=== PATIENT | male | born 1950 | race Caucasian/White ===

== ENCOUNTER 2018-03-01 07:38 | Inpatient (IN) | payer BC ==
[2018-03-01] MEDS ORDERED: IODIXANOL LOCM 100 ML BTL (08:15)
[2018-03-01] MEDS ORDERED: VERAPAMIL 5 MG INJ (08:16)
[2018-03-01] MEDS ORDERED: NITROGLYCERIN (IC) 100 MCG/ML INJ (08:16)
[2018-03-01] MEDS ORDERED: HEPARIN 1000 UNITS/ML 10 ML INJ (08:16)
[2018-03-01] MEDS ORDERED: LIDOCAINE 1% (MDV) 10 ML INJ (08:16)
[2018-03-01] MEDS: SOD CHLORIDE 0.45% 1,000 ML IV (08:25)
[2018-03-01] MEDS ORDERED: DIAZEPAM 5 MG TAB PO (08:30)
[2018-03-01] MEDS ORDERED: DIPHENHYDRAMINE 50 MG CAP PO (08:30)
[2018-03-01] MEDS ORDERED: FAMOTIDINE 20 MG TAB PO (08:30)
[2018-03-01 08:32] LABS: ADD MAN DIFF? NO
[2018-03-01 08:38] LABS: WHITE BLOOD COUNT 8.3 10^3/ul (4.8-10.8)
[2018-03-01 08:38] LABS: BASOPHIL # 0.1 10^3/ul (0.0-0.1); BASOPHILS % 0.8 % (0.0-2.0); EOSINOPHILS # 0.6 10^3/ul (0.0-0.5); EOSINOPHILS % 7.1 % (0.0-7.0); HEMOGLOBIN 13.8 g/dl (14.0-18.0); LYMPHOCYTES # 2.2 10^3/ul (0.8-2.9); LYMPHOCYTES % 26.1 % (15.0-51.0); MEAN CORPUSCULAR HEMOGLOBIN 25.8 pg (29.0-33.0); MEAN CORPUSCULAR HGB CONC 32.9 g/dl (32.0-37.0); MEAN CORPUSCULAR VOLUME 78.7 fl (82.0-101.0); MEAN PLATELET VOLUME 9.4 fl (7.4-10.4); MONOCYTE # 0.7 10^3/ul (0.3-0.9); MONOCYTES % 8.6 % (0.0-11.0); NEUTROPHIL # 4.7 10^3/ul (1.6-7.5); NEUTROPHILS % 56.9 % (39.0-77.0); PLATELET COUNT 215 10^3/UL (140-415); RED BLOOD COUNT 5.34 10^6/ul (4.70-6.10); RED CELL DISTRIBUTION WIDTH 13.4 % (11.5-14.5)
[2018-03-01 08:44] LABS: ALANINE AMINOTRANSFERASE 35 IU/L (13-69); ALBUMIN 4.3 g/dl (3.3-4.9); ALBUMIN/GLOBULIN RATIO 1.59; ALKALINE PHOSPHATASE 61 IU/L (42-121); ANION GAP 13 (8-16); ASPARTATE AMINO TRANSFERASE 28 IU/L (15-46); BILIRUBIN,INDIRECT 1.3 mg/dl (0-1.1); BILIRUBIN,TOTAL 1.3 mg/dl (0.2-1.3); BLOOD UREA NITROGEN 25 mg/dl (7-20); CARBON DIOXIDE 26 mmol/L (21-31); CHLORIDE 106 mmol/L (97-110); CHOL/HDL RATIO 2.8 RATIO; CHOLESTEROL 118 mg/dl (100-200); CREATININE 1.28 mg/dl (0.61-1.24); GLUCOSE 103 mg/dl (70-220); HDL CHOLESTEROL 41 mg/dl (30-78); LDL CHOLESTEROL,CALCULATED 53 mg/dl; POTASSIUM 3.8 mmol/L (3.5-5.1); SODIUM 141 mmol/L (135-144); TRIGLYCERIDES 118 mg/dl (0-149)
[2018-03-01 08:48] LABS: INR 0.93; PARTIAL THROMBOPLASTIN TIME 26.4 Sec (25.0-35.0); PROTIME 12.5 Sec (11.9-14.9)
[2018-03-01] MEDS ORDERED: MIDAZOLAM 1 MG/ML 2 ML INJ (08:59)
[2018-03-01] MEDS ORDERED: FENTAnyl 50 MCG/ML VIAL (09:00)
[2018-03-01] MEDS ORDERED: AL HYDROX/MG HYDROX/SIMETH 30 ML CUP PO (10:00)
[2018-03-01] MEDS ORDERED: morphine 2 MG INJ IV (10:00)
[2018-03-01] MEDS: SOD CHLORIDE 0.9% 1,000 ML IV ×2 (10:23→14:00)
[2018-03-01] MEDS: FINASTERIDE 5 MG TAB PO (14:45)
[2018-03-01] MEDS: ASPIRIN (EC) 81 MG TAB PO (14:45)
[2018-03-01 14:49] LABS: ADD UMIC NO; UR ASCORBIC ACID NEGATIVE (NEGATIVE); UR BILIRUBIN (Dip) NEGATIVE (NEGATIVE); UR BLOOD (Dip) NEGATIVE (NEGATIVE); UR CLARITY CLEAR (CLEAR); UR COLOR YELLOW (YELLOW); UR GLUCOSE (Dip) NEGATIVE (NEGATIVE); UR KETONES (Dip) NEGATIVE (NEGATIVE); UR LEUKOCYTE ESTERASE (Dip) NEGATIVE Leu/ul (NEGATIVE); UR NITRITE (Dip) NEGATIVE (NEGATIVE); UR SPECIFIC GRAVITY (Dip) 1.031 (1.003-1.030); UR TOTAL PROTEIN (Dip) NEGATIVE (NEGATIVE); UR UROBILINOGEN (Dip) NEGATIVE (NEGATIVE)
[2018-03-01] MEDS: ATORVASTATIN 40 MG TAB PO (22:56)
[2018-03-01] MEDS: ACETYLCYSTEINE 600 MG CAP PO (22:57)
[2018-03-02] MEDS: PANTOPRAZOLE (EC) 40 MG TAB PO (05:20)
[2018-03-02 06:36] LABS: ADD MAN DIFF? NO
[2018-03-02 06:42] LABS: BASOPHIL # 0.1 10^3/ul (0.0-0.1); BASOPHILS % 0.8 % (0.0-2.0); EOSINOPHILS # 0.6 10^3/ul (0.0-0.5); EOSINOPHILS % 6.8 % (0.0-7.0); HEMATOCRIT 42.7 % (42.0-52.0); LYMPHOCYTES # 2.3 10^3/ul (0.8-2.9); LYMPHOCYTES % 26.1 % (15.0-51.0); MEAN CORPUSCULAR HEMOGLOBIN 26.3 pg (29.0-33.0); MEAN CORPUSCULAR HGB CONC 32.8 g/dl (32.0-37.0); MEAN CORPUSCULAR VOLUME 80.3 fl (82.0-101.0); MEAN PLATELET VOLUME 9.3 fl (7.4-10.4); MONOCYTE # 0.7 10^3/ul (0.3-0.9); NEUTROPHIL # 5.2 10^3/ul (1.6-7.5); NEUTROPHILS % 57.9 % (39.0-77.0); PLATELET COUNT 215 10^3/UL (140-415); RED BLOOD COUNT 5.32 10^6/ul (4.70-6.10); RED CELL DISTRIBUTION WIDTH 13.1 % (11.5-14.5)
[2018-03-02] MEDS: SOD CHLORIDE 0.9% 1,000 ML IV ×2 (06:49→16:21)
[2018-03-02 07:02] LABS: ALANINE AMINOTRANSFERASE 31 IU/L (13-69); ALBUMIN 3.9 g/dl (3.3-4.9); ALBUMIN/GLOBULIN RATIO 1.44; ALKALINE PHOSPHATASE 56 IU/L (42-121); ANION GAP 14 (8-16); ASPARTATE AMINO TRANSFERASE 24 IU/L (15-46); BILIRUBIN,INDIRECT 1.7 mg/dl (0-1.1); BILIRUBIN,TOTAL 1.7 mg/dl (0.2-1.3); BLOOD UREA NITROGEN 21 mg/dl (7-20); CALCIUM 8.8 mg/dl (8.4-10.2); CARBON DIOXIDE 25 mmol/L (21-31); CHLORIDE 103 mmol/L (97-110); CREATININE 1.18 mg/dl (0.61-1.24); GLUCOSE 87 mg/dl (70-220); POTASSIUM 3.9 mmol/L (3.5-5.1); SODIUM 138 mmol/L (135-144); TOTAL PROTEIN 6.6 g/dl (6.1-8.1)
[2018-03-02] MEDS: ASPIRIN (EC) 81 MG TAB PO (08:28)
[2018-03-02] MEDS: ACETYLCYSTEINE 600 MG CAP PO ×2 (08:28→22:04)
[2018-03-02] MEDS: ISOSORBIDE MONONITRATE(SR)60 MG TAB PO (08:28)
[2018-03-02] MEDS: AMLODIPINE 10 MG TAB PO (08:28)
[2018-03-02] MEDS: FINASTERIDE 5 MG TAB PO (08:28)
[2018-03-02] MEDS ORDERED: METOPROLOL 25 MG TAB PO (09:00)
[2018-03-02] MEDS ORDERED: HYDROCHLOROTHIAZIDE 25 MG TAB PO (09:00)
[2018-03-02] MEDS: ATORVASTATIN 40 MG TAB PO (22:04)
[2018-03-03] MEDS: SOD CHLORIDE 0.9% 1,000 ML IV ×2 (06:00→21:46)
[2018-03-03] MEDS: PANTOPRAZOLE (EC) 40 MG TAB PO (06:00)
[2018-03-03 07:10] LABS: ADD MAN DIFF? NO
[2018-03-03 07:18] LABS: BASOPHIL # 0.1 10^3/ul (0.0-0.1); BASOPHILS % 0.9 % (0.0-2.0); EOSINOPHILS # 0.7 10^3/ul (0.0-0.5); EOSINOPHILS % 8.1 % (0.0-7.0); HEMATOCRIT 39.3 % (42.0-52.0); HEMOGLOBIN 12.9 g/dl (14.0-18.0); LYMPHOCYTES % 24.5 % (15.0-51.0); MEAN CORPUSCULAR HEMOGLOBIN 26.5 pg (29.0-33.0); MEAN CORPUSCULAR HGB CONC 32.8 g/dl (32.0-37.0); MEAN CORPUSCULAR VOLUME 80.7 fl (82.0-101.0); MEAN PLATELET VOLUME 9.5 fl (7.4-10.4); MONOCYTE # 0.7 10^3/ul (0.3-0.9); MONOCYTES % 8.5 % (0.0-11.0); NEUTROPHIL # 4.7 10^3/ul (1.6-7.5); NEUTROPHILS % 57.3 % (39.0-77.0); PLATELET COUNT 196 10^3/UL (140-415); RED BLOOD COUNT 4.87 10^6/ul (4.70-6.10); RED CELL DISTRIBUTION WIDTH 13.2 % (11.5-14.5)
[2018-03-03 07:18] LABS: WHITE BLOOD COUNT 8.2 10^3/ul (4.8-10.8)
[2018-03-03 08:05] LABS: ANION GAP 11 (8-16); BLOOD UREA NITROGEN 20 mg/dl (7-20); CALCIUM 8.5 mg/dl (8.4-10.2); CARBON DIOXIDE 25 mmol/L (21-31); CHLORIDE 106 mmol/L (97-110); CREATININE 1.19 mg/dl (0.61-1.24); GLUCOSE 93 mg/dl (70-220); POTASSIUM 4.3 mmol/L (3.5-5.1); SODIUM 138 mmol/L (135-144)
[2018-03-03] MEDS: ACETYLCYSTEINE 600 MG CAP PO (08:28)
[2018-03-03] MEDS: ASPIRIN (EC) 81 MG TAB PO (08:28)
[2018-03-03] MEDS: FINASTERIDE 5 MG TAB PO (08:28)
[2018-03-03] MEDS: AMLODIPINE 10 MG TAB PO (08:29)
[2018-03-03] MEDS: ISOSORBIDE MONONITRATE(SR)60 MG TAB PO (08:29)
[2018-03-03] MEDS: ATORVASTATIN 40 MG TAB PO (21:45)
[2018-03-04] MEDS: PANTOPRAZOLE (EC) 40 MG TAB PO (06:00)
[2018-03-04] MEDS: CEFAZOLIN 2 GM/50 ML (PMX) 50 ML IVPB (06:00)
[2018-03-04] MEDS: HEPARIN 1000 UNITS/ML 10 ML INJ (06:53)
[2018-03-04] MEDS: PAPAVERINE 60 MG INJ (06:53)
[2018-03-04] MEDS: VANCOMYCIN 1 GM INJ (06:53)
[2018-03-04] MEDS ORDERED: SODIUM CL BACTERIOSTATIC 30 ML INJ (06:54)
[2018-03-04] MEDS ORDERED: PROPOFOL 1000 MG INJ (07:00)
[2018-03-04] MEDS: ASPIRIN 600 MG SUPP PR (07:30)
[2018-03-04] MEDS: PHENYLephrine 20MG IN 250 ML 250 ML IV (07:30)
[2018-03-04] MEDS: NORepinephrine 8MG/250 ML (PMX 250 ML IV (07:30)
[2018-03-04] MEDS: EPINEPHrine 4 MG in DEXTROSE 5% 246 ML IV (07:30)
[2018-03-04] MEDS: HEPARIN (10000 UNITS/ML) 10,000 UNIT, MILRINONE LACTATE 10 MG in SOD CHLORIDE 0.9% 1,00... SC (07:30)
[2018-03-04] MEDS ORDERED: MIDAZOLAM 5 ML ×2 (07:33)
[2018-03-04] MEDS ORDERED: ALBUMIN HUMAN 25% 300 ML (07:46)
[2018-03-04] MEDS ORDERED: AMINOCAPROIC ACID 5 GM INJ ×2 (07:47→08:40)
[2018-03-04] MEDS ORDERED: CA CHLORIDE 10% 10 ML SYRINGE (07:47)
[2018-03-04] MEDS ORDERED: POTASSIUM CHLORIDE 40 MEQ INJ (07:48)
[2018-03-04] MEDS ORDERED: HEPARIN 1000 UNITS/ML 10 ML INJ ×2 (07:48→08:40)
[2018-03-04] MEDS ORDERED: PHENYLephrine 10 MG INJ (07:49)
[2018-03-04] MEDS ORDERED: LIDOCAINE 100 MG SYRINGE (07:49)
[2018-03-04] MEDS ORDERED: MAGNESIUM SULFATE (MG) 50% 10 ML INJ (07:49)
[2018-03-04] MEDS ORDERED: MANNITOL 20% 250 ML IV (07:50)
[2018-03-04] MEDS ORDERED: PHENYLephrine (100 MCG/ML) 5ML SYG (07:50)
[2018-03-04] MEDS ORDERED: CEFAZOLIN 1 GM INJ (08:33)
[2018-03-04] MEDS ORDERED: ALBUMIN HUMAN 25% 100 ML (08:40)
[2018-03-04] MEDS ORDERED: ALBUMIN HUMAN 5% 500 ML (08:40)
[2018-03-04] MEDS: SOD CHLORIDE 0.9% 1,000 ML IV ×2 (08:40→21:25)
[2018-03-04] MEDS ORDERED: PROTAMINE 250 MG INJ ×2 (08:41→10:38)
[2018-03-04] MEDS ORDERED: NITROGLYCERIN (08:51)
[2018-03-04] MEDS ORDERED: DEXTROSE (08:51)
[2018-03-04] MEDS ORDERED: morphine 10 MG INJ ×2 (08:53→11:13)
[2018-03-04] MEDS: AMLODIPINE 10 MG TAB PO (09:00)
[2018-03-04] MEDS: FINASTERIDE 5 MG TAB PO (09:00)
[2018-03-04] MEDS: DESMOPRESSIN IV (09:00)
[2018-03-04] MEDS: ISOSORBIDE MONONITRATE(SR)60 MG TAB PO (09:00)
[2018-03-04] MEDS: SOD CHLORIDE 0.9% IV (09:00)
[2018-03-04 09:40] LABS: IMMEDIATE SPIN CROSSMATCH 1 2
[2018-03-04] MEDS ORDERED: NEOMYC/POLYMYX/BACIT 30 GM OINT (11:14)
[2018-03-04] MEDS ORDERED: MAGNESIUM SULFATE 1 GM/D5W 100 ML IVPB (12:00)
[2018-03-04] MEDS ORDERED: DOPamine-D5W 1.6 MG/ML 250 ML IV (12:00)
[2018-03-04] MEDS: INSULIN HUMAN REGULAR 100 UNIT in SOD CHLORIDE 0.9% 99 ML IVPB (12:00)
[2018-03-04] MEDS ORDERED: ONDANSETRON 4 MG INJ IV (12:00)
[2018-03-04] MEDS ORDERED: DEXTROSE 50% 50 ML SYRINGE IV ×2 (12:00)
[2018-03-04] MEDS: NITROGLYCERIN 50 MG/D5W (PMX) 250 ML IV (12:00)
[2018-03-04] MEDS ORDERED: ACETAMINOPHEN 650MG/20.3ML CUP NGT (12:00)
[2018-03-04] MEDS ORDERED: HYDROmorphONE 0.5 MG/0.5 ML SYG IV ×2 (12:00)
[2018-03-04] MEDS: MILRINONE LACTATE 2 MG in SOD CHLORIDE 0.9% 50 ML IV (12:00)
[2018-03-04] MEDS ORDERED: HYDROmorphONE 1 MG/ML SYG IV (12:00)
[2018-03-04] MEDS: ACCU-CHEK XX ×12 (12:00→23:43)
[2018-03-04 12:28] LABS: ADD MAN DIFF? NO
[2018-03-04 12:34] LABS: AADO2 Arterial 457.8 mmHg (7.0-24.0); Arterial Base Excess -2.3 mmol/L (-3.0-3); Arterial Blood Gas Oxygen Sat 92.2 mmHG (95.0-98.0); Arterial COHb 0.3 % (0.0-3.0); Arterial Fraction of Oxyhgb 91.6 % (93.0-99.0); Arterial HCO3 23.1 mmol/L (22.0-26.0); Arterial MetHb 0.4 % (0.0-1.5); Arterial Total Hemglobin 11.1 g/dl (12.0-18.0); Arterial pCO2 42.6 mmhg (35-45); MODE VENT - AC; Site A-Line
[2018-03-04 12:38] LABS: MODE VENT - AC; MetHgb Mixed Venous 0.3 %; Mixed Venous COHb 0.3 %; Mixed Venous Fraction OxyHgb 74.9 %; Mixed Venous Oxygen Sat 75.4 mmHG (65.0-75.0); Mixed Venous Total Hemglobin 10.8 g/dl; Sample Type BLMV; Site OTHER
[2018-03-04 12:54] LABS: ANION GAP 15 (8-16); BLOOD UREA NITROGEN 18 mg/dl (7-20); CALCIUM 9.4 mg/dl (8.4-10.2); CARBON DIOXIDE 23 mmol/L (21-31); CHLORIDE 107 mmol/L (97-110); CREATININE 1.21 mg/dl (0.61-1.24); GLUCOSE 125 mg/dl (70-220); MAGNESIUM 2.5 mg/dl (1.7-2.5); PARTIAL THROMBOPLASTIN TIME 34.3 Sec (25.0-35.0); POTASSIUM 3.7 mmol/L (3.5-5.1); PROTIME 15.4 Sec (11.9-14.9); PT RATIO 1.2; SODIUM 141 mmol/L (135-144)
[2018-03-04 13:04] LABS: WHITE BLOOD COUNT 17.1 10^3/ul (4.8-10.8)
[2018-03-04 13:04] LABS: BASOPHIL # 0.1 10^3/ul (0.0-0.1); BASOPHILS % 0.3 % (0.0-2.0); EOSINOPHILS # 0.1 10^3/ul (0.0-0.5); EOSINOPHILS % 0.8 % (0.0-7.0); HEMATOCRIT 30.2 % (42.0-52.0); HEMOGLOBIN 9.9 g/dl (14.0-18.0); LYMPHOCYTES # 1.8 10^3/ul (0.8-2.9); LYMPHOCYTES % 10.4 % (15.0-51.0); MEAN CORPUSCULAR HEMOGLOBIN 26.4 pg (29.0-33.0); MEAN CORPUSCULAR HGB CONC 32.8 g/dl (32.0-37.0); MEAN CORPUSCULAR VOLUME 80.5 fl (82.0-101.0); MEAN PLATELET VOLUME 9.5 fl (7.4-10.4); MONOCYTE # 1.3 10^3/ul (0.3-0.9); MONOCYTES % 7.8 % (0.0-11.0); NEUTROPHIL # 13.7 10^3/ul (1.6-7.5); NEUTROPHILS % 80.1 % (39.0-77.0); PLATELET COUNT 195 10^3/UL (140-415); RED BLOOD COUNT 3.75 10^6/ul (4.70-6.10); RED CELL DISTRIBUTION WIDTH 13.1 % (11.5-14.5)
[2018-03-04] MEDS: POTASSIUM CHLORIDE 40 MEQ, CALCIUM CHLORIDE 10% 1 GM in DEXTROSE 5%-0.225% NACL 1,000 ML IV (14:22)
[2018-03-04] MEDS: POTASSIUM CHLORIDE 50 ML IVPB ×3 (14:42→16:58)
[2018-03-04] MEDS: CEFAZOLIN 1 GM/50 ML (PMX) 50 ML IVPB ×2 (14:52→21:59)
[2018-03-04] MEDS: SOD CHLORIDE 0.9% 500 ML IV (16:00)
[2018-03-04 17:19] LABS: AADO2 Arterial 430.5 mmHg (7.0-24.0); Arterial Base Excess -6.3 mmol/L (-3.0-3); Arterial Blood Gas Oxygen Sat 98.4 mmHG (95.0-98.0); Arterial COHb 0.2 % (0.0-3.0); Arterial Fraction of Oxyhgb 97.8 % (93.0-99.0); Arterial HCO3 19.2 mmol/L (22.0-26.0); Arterial MetHb 0.4 % (0.0-1.5); Arterial Total Hemglobin 10.4 g/dl (12.0-18.0); Arterial pCO2 37.7 mmhg (35-45); MODE VENT - AC; Site A-Line
[2018-03-04 17:30] LABS: HEMOGLOBIN A1C 5.7 % (0-5.9)
[2018-03-04 19:30] LABS: ADD MAN DIFF? NO
[2018-03-04 19:33] LABS: WHITE BLOOD COUNT 17.6 10^3/ul (4.8-10.8)
[2018-03-04 19:33] LABS: ABNORMAL IP MESSAGE 1; BASOPHILS % 0.2 % (0.0-2.0); EOSINOPHILS # 0.2 10^3/ul (0.0-0.5); EOSINOPHILS % 1.1 % (0.0-7.0); HEMATOCRIT 29.3 % (42.0-52.0); HEMOGLOBIN 9.6 g/dl (14.0-18.0); LYMPHOCYTES # 0.6 10^3/ul (0.8-2.9); LYMPHOCYTES % 3.6 % (15.0-51.0); MEAN CORPUSCULAR HEMOGLOBIN 26.8 pg (29.0-33.0); MEAN CORPUSCULAR HGB CONC 32.8 g/dl (32.0-37.0); MEAN CORPUSCULAR VOLUME 81.8 fl (82.0-101.0); MEAN PLATELET VOLUME 9.4 fl (7.4-10.4); MONOCYTE # 1.3 10^3/ul (0.3-0.9); MONOCYTES % 7.6 % (0.0-11.0); NEUTROPHIL # 15.3 10^3/ul (1.6-7.5); PLATELET COUNT 257 10^3/UL (140-415); POSITIVE DIFF @See below; RED BLOOD COUNT 3.58 10^6/ul (4.70-6.10); RED CELL DISTRIBUTION WIDTH 13.2 % (11.5-14.5)
[2018-03-04 19:50] LABS: ALANINE AMINOTRANSFERASE 24 IU/L (13-69); ALBUMIN 4.3 g/dl (3.3-4.9); ALBUMIN/GLOBULIN RATIO 2.04; ALKALINE PHOSPHATASE 28 IU/L (42-121); ANION GAP 16 (8-16); ASPARTATE AMINO TRANSFERASE 30 IU/L (15-46); BILIRUBIN,INDIRECT 0.8 mg/dl (0-1.1); BILIRUBIN,TOTAL 0.8 mg/dl (0.2-1.3); BLOOD UREA NITROGEN 22 mg/dl (7-20); CALCIUM 9.3 mg/dl (8.4-10.2); CARBON DIOXIDE 22 mmol/L (21-31); CHLORIDE 108 mmol/L (97-110); CREATININE 1.44 mg/dl (0.61-1.24); GLUCOSE 137 mg/dl (70-220); MAGNESIUM 2.4 mg/dl (1.7-2.5); PHOSPHORUS 2.3 mg/dl (2.5-4.9); POTASSIUM 4.5 mmol/L (3.5-5.1); SODIUM 141 mmol/L (135-144); TOTAL PROTEIN 6.4 g/dl (6.1-8.1)
[2018-03-04] MEDS: FAMOTIDINE 20 MG INJ IV (20:02)
[2018-03-04] MEDS: ACETAMINOPHEN 325 MG TAB PO (20:02)
[2018-03-04] MEDS: ATORVASTATIN 40 MG TAB PO (20:02)
[2018-03-04 20:55] LABS: AADO2 Arterial 150.1 mmHg (7.0-24.0); Arterial Base Excess -4.4 mmol/L (-3.0-3); Arterial Blood Gas Oxygen Sat 96.4 mmHG (95.0-98.0); Arterial COHb 0.2 % (0.0-3.0); Arterial Fraction of Oxyhgb 95.8 % (93.0-99.0); Arterial HCO3 20.4 mmol/L (22.0-26.0); Arterial MetHb 0.4 % (0.0-1.5); Arterial Total Hemglobin 10.6 g/dl (12.0-18.0); Arterial pCO2 36.4 mmhg (35-45); Blood Gas PS 10; MODE VENT - CPAP; Site A-Line
[2018-03-04] MEDS ORDERED: FAMOTIDINE 20 MG TAB PO (21:00)
[2018-03-04] MEDS: ONDANSETRON 4 MG INJ IV (21:12)
[2018-03-04] MEDS: OXYCODONE/ACETAMINOPHEN (5/325) TAB PO (23:42)
[2018-03-05] MEDS: ACCU-CHEK XX ×11 (00:30→10:08)
[2018-03-05] MEDS: INSULIN HUMAN REGULAR 100 UNIT in SOD CHLORIDE 0.9% 99 ML IV (04:10)
[2018-03-05] MEDS: OXYCODONE/ACETAMINOPHEN (5/325) TAB PO ×3 (05:00→17:45)
[2018-03-05 05:04] LABS: ADD MAN DIFF? NO
[2018-03-05 05:05] LABS: WHITE BLOOD COUNT 13.4 10^3/ul (4.8-10.8)
[2018-03-05 05:05] LABS: ABNORMAL IP MESSAGE 1; BASOPHILS % 0.1 % (0.0-2.0); HEMATOCRIT 28.8 % (42.0-52.0); HEMOGLOBIN 9.2 g/dl (14.0-18.0); LYMPHOCYTES # 0.7 10^3/ul (0.8-2.9); LYMPHOCYTES % 4.8 % (15.0-51.0); MEAN CORPUSCULAR HEMOGLOBIN 26.4 pg (29.0-33.0); MEAN CORPUSCULAR HGB CONC 31.9 g/dl (32.0-37.0); MEAN CORPUSCULAR VOLUME 82.8 fl (82.0-101.0); MEAN PLATELET VOLUME 10.1 fl (7.4-10.4); MONOCYTE # 1.5 10^3/ul (0.3-0.9); MONOCYTES % 11.4 % (0.0-11.0); NEUTROPHIL # 11.2 10^3/ul (1.6-7.5); NEUTROPHILS % 83.2 % (39.0-77.0); PLATELET COUNT 214 10^3/UL (140-415); POSITIVE DIFF @See below; RED BLOOD COUNT 3.48 10^6/ul (4.70-6.10); RED CELL DISTRIBUTION WIDTH 13.5 % (11.5-14.5)
[2018-03-05] MEDS: CEFAZOLIN 1 GM/50 ML (PMX) 50 ML IVPB (05:41)
[2018-03-05] MEDS: PANTOPRAZOLE (EC) 40 MG TAB PO (05:41)
[2018-03-05 05:55] LABS: ANION GAP 13 (8-16); BLOOD UREA NITROGEN 26 mg/dl (7-20); CALCIUM 9.5 mg/dl (8.4-10.2); CARBON DIOXIDE 24 mmol/L (21-31); CHLORIDE 110 mmol/L (97-110); CREATININE 1.51 mg/dl (0.61-1.24); GLUCOSE 82 mg/dl (70-220); MAGNESIUM 2.3 mg/dl (1.7-2.5); POTASSIUM 4.8 mmol/L (3.5-5.1); SODIUM 142 mmol/L (135-144)
[2018-03-05 06:02] LABS: INR 1.08; PARTIAL THROMBOPLASTIN TIME 32.2 Sec (25.0-35.0); PROTIME 14.1 Sec (11.9-14.9); PT RATIO 1.1
[2018-03-05] MEDS: POTASSIUM CHLORIDE 40 MEQ, CALCIUM CHLORIDE 10% 1 GM in DEXTROSE 5%-0.225% NACL 1,000 ML IV (07:21)
[2018-03-05] MEDS: FAMOTIDINE 20 MG INJ IV ×2 (07:59→20:18)
[2018-03-05] MEDS: ASPIRIN 325 MG TAB PO (09:05)
[2018-03-05] MEDS: FINASTERIDE 5 MG TAB PO (09:05)
[2018-03-05] MEDS: METOPROLOL 25 MG TAB PO ×2 (09:05→20:25)
[2018-03-05] MEDS: ISOSORBIDE MONONITRATE(SR)60 MG TAB PO (09:05)
[2018-03-05] MEDS: AMLODIPINE 10 MG TAB PO (09:06)
[2018-03-05] MEDS: SOD CHLORIDE 0.9% 1,000 ML IV (11:20)
[2018-03-05] MEDS ORDERED: INSULIN ASPART [NOVOLOG] 3 ML PEN SC ×3 (11:30→13:00)
[2018-03-05] MEDS: INSULIN ASPART [NOVOLOG] 3 ML PEN SC ×3 (11:30→20:27)
[2018-03-05] MEDS ORDERED: GLUCOSE GEL 15 GRAM TUBE BUCCAL (12:00)
[2018-03-05] MEDS ORDERED: GLUCAGON 1 MG INJ IM (12:00)
[2018-03-05] MEDS ORDERED: GLUCOSE GEL 15 GRAM TUBE PO ×2 (12:00)
[2018-03-05] MEDS ORDERED: DEXTROSE 50% 50 ML SYRINGE IV ×2 (12:00)
[2018-03-05 13:00] LABS: HEMATOCRIT 26.8 % (42.0-52.0)
[2018-03-05] MEDS: SOD CHLORIDE 0.45% 1,000 ML IV (15:49)
[2018-03-05] MEDS: ATORVASTATIN 40 MG TAB PO (20:18)
[2018-03-05] MEDS: AMIODARONE 900 MG in DEXTROSE 5% 482 ML IV (21:25)
[2018-03-06] MEDS: POTASSIUM CHLORIDE 40 MEQ, CALCIUM CHLORIDE 10% 1 GM in DEXTROSE 5%-0.225% NACL 1,000 ML IV (00:20)
[2018-03-06] MEDS: SOD CHLORIDE 0.9% 1,000 ML IV ×2 (00:30→11:31)
[2018-03-06] MEDS: OXYCODONE/ACETAMINOPHEN (5/325) TAB PO ×3 (01:07→23:12)
[2018-03-06] MEDS: ACCU-CHEK XX (02:00)
[2018-03-06 05:28] LABS: ADD MAN DIFF? NO
[2018-03-06 05:43] LABS: WHITE BLOOD COUNT 13.3 10^3/ul (4.8-10.8)
[2018-03-06 05:43] LABS: BASOPHILS % 0.2 % (0.0-2.0); EOSINOPHILS % 0.1 % (0.0-7.0); HEMATOCRIT 24.9 % (42.0-52.0); LYMPHOCYTES # 1.2 10^3/ul (0.8-2.9); LYMPHOCYTES % 9.2 % (15.0-51.0); MEAN CORPUSCULAR HEMOGLOBIN 26.5 pg (29.0-33.0); MEAN CORPUSCULAR HGB CONC 32.1 g/dl (32.0-37.0); MEAN CORPUSCULAR VOLUME 82.5 fl (82.0-101.0); MEAN PLATELET VOLUME 10.2 fl (7.4-10.4); MONOCYTE # 1.3 10^3/ul (0.3-0.9); NEUTROPHIL # 10.6 10^3/ul (1.6-7.5); NEUTROPHILS % 79.8 % (39.0-77.0); PLATELET COUNT 160 10^3/UL (140-415); RED BLOOD COUNT 3.02 10^6/ul (4.70-6.10); RED CELL DISTRIBUTION WIDTH 13.9 % (11.5-14.5)
[2018-03-06 05:54] LABS: INR 1.14; PARTIAL THROMBOPLASTIN TIME 39.4 Sec (25.0-35.0); PROTIME 14.8 Sec (11.9-14.9); PT RATIO 1.2
[2018-03-06 06:03] LABS: MAGNESIUM 2.2 mg/dl (1.7-2.5)
[2018-03-06 06:04] LABS: PHOSPHORUS 3.5 mg/dl (2.5-4.9)
[2018-03-06 06:08] LABS: ANION GAP 11 (8-16); BLOOD UREA NITROGEN 37 mg/dl (7-20); CARBON DIOXIDE 23 mmol/L (21-31); CHLORIDE 105 mmol/L (97-110); CREATININE 1.88 mg/dl (0.61-1.24); GLUCOSE 148 mg/dl (70-220); SODIUM 134 mmol/L (135-144)
[2018-03-06] MEDS: PANTOPRAZOLE (EC) 40 MG TAB PO (06:12)
[2018-03-06] MEDS: SOD CHLORIDE 0.45% 1,000 ML IV (06:12)
[2018-03-06] MEDS: ASPIRIN 325 MG TAB PO (08:34)
[2018-03-06] MEDS: ISOSORBIDE MONONITRATE(SR)60 MG TAB PO (08:34)
[2018-03-06] MEDS: FINASTERIDE 5 MG TAB PO (08:34)
[2018-03-06] MEDS: FAMOTIDINE 20 MG INJ IV ×2 (08:34→20:10)
[2018-03-06] MEDS: METOPROLOL 25 MG TAB PO ×2 (08:35→20:10)
[2018-03-06] MEDS: INSULIN ASPART [NOVOLOG] 3 ML PEN SC ×4 (08:42→20:10)
[2018-03-06] MEDS: ENOXAPARIN 40 MG/0.4 ML SYG SC (08:43)
[2018-03-06 19:47] LABS: ADD UMIC NO; UR ASCORBIC ACID NEGATIVE (NEGATIVE); UR BILIRUBIN (Dip) NEGATIVE (NEGATIVE); UR BLOOD (Dip) NEGATIVE (NEGATIVE); UR CLARITY CLEAR (CLEAR); UR COLOR YELLOW (YELLOW); UR GLUCOSE (Dip) NEGATIVE (NEGATIVE); UR KETONES (Dip) NEGATIVE (NEGATIVE); UR LEUKOCYTE ESTERASE (Dip) NEGATIVE Leu/ul (NEGATIVE); UR NITRITE (Dip) NEGATIVE (NEGATIVE); UR SPECIFIC GRAVITY (Dip) 1.021 (1.003-1.030); UR TOTAL PROTEIN (Dip) NEGATIVE (NEGATIVE); UR UROBILINOGEN (Dip) NEGATIVE (NEGATIVE)
[2018-03-06] MEDS: ATORVASTATIN 40 MG TAB PO (20:09)
[2018-03-07] MEDS: ACCU-CHEK XX (02:00)
[2018-03-07] MEDS: PANTOPRAZOLE (EC) 40 MG TAB PO (05:29)
[2018-03-07 06:40] LABS: ADD MAN DIFF? NO
[2018-03-07 06:42] LABS: WHITE BLOOD COUNT 11.5 10^3/ul (4.8-10.8)
[2018-03-07 06:42] LABS: BASOPHIL # 0.1 10^3/ul (0.0-0.1); BASOPHILS % 0.4 % (0.0-2.0); EOSINOPHILS # 0.2 10^3/ul (0.0-0.5); EOSINOPHILS % 1.7 % (0.0-7.0); HEMATOCRIT 24.5 % (42.0-52.0); HEMOGLOBIN 7.7 g/dl (14.0-18.0); LYMPHOCYTES # 1.4 10^3/ul (0.8-2.9); MEAN CORPUSCULAR HEMOGLOBIN 25.8 pg (29.0-33.0); MEAN CORPUSCULAR HGB CONC 31.4 g/dl (32.0-37.0); MEAN CORPUSCULAR VOLUME 82.2 fl (82.0-101.0); MEAN PLATELET VOLUME 10.1 fl (7.4-10.4); MONOCYTES % 8.9 % (0.0-11.0); NEUTROPHIL # 8.7 10^3/ul (1.6-7.5); NEUTROPHILS % 75.9 % (39.0-77.0); PLATELET COUNT 165 10^3/UL (140-415); RED BLOOD COUNT 2.98 10^6/ul (4.70-6.10)
[2018-03-07 07:10] LABS: ANION GAP 12 (8-16); BLOOD UREA NITROGEN 34 mg/dl (7-20); CALCIUM 8.5 mg/dl (8.4-10.2); CARBON DIOXIDE 24 mmol/L (21-31); CHLORIDE 106 mmol/L (97-110); CREATININE 1.38 mg/dl (0.61-1.24); GLUCOSE 105 mg/dl (70-220); POTASSIUM 4.9 mmol/L (3.5-5.1); SODIUM 137 mmol/L (135-144)
[2018-03-07 07:22] LABS: PHOSPHORUS 2.6 mg/dl (2.5-4.9)
[2018-03-07 07:22] LABS: MAGNESIUM 2.2 mg/dl (1.7-2.5)
[2018-03-07] MEDS: INSULIN ASPART [NOVOLOG] 3 ML PEN SC ×4 (07:55→20:36)
[2018-03-07] MEDS: OXYCODONE/ACETAMINOPHEN (5/325) TAB PO ×2 (08:05→22:58)
[2018-03-07] MEDS: METOPROLOL 25 MG TAB PO ×2 (08:06→20:33)
[2018-03-07] MEDS: ASPIRIN 325 MG TAB PO (08:06)
[2018-03-07] MEDS: FINASTERIDE 5 MG TAB PO (08:06)
[2018-03-07] MEDS: FAMOTIDINE 20 MG INJ IV ×2 (08:06→21:23)
[2018-03-07] MEDS: ENOXAPARIN 40 MG/0.4 ML SYG SC (08:10)
[2018-03-07] MEDS: SOD CHLORIDE 0.9% 1,000 ML IV (11:30)
[2018-03-07] MEDS ORDERED: morphine LIQ (10 MG/5 ML) CUP PO ×2 (16:30)
[2018-03-07] MEDS: ATORVASTATIN 40 MG TAB PO (20:32)
[2018-03-08] MEDS: ACCU-CHEK XX (02:00)
[2018-03-08] MEDS: PANTOPRAZOLE (EC) 40 MG TAB PO (05:35)
[2018-03-08 07:34] LABS: ADD MAN DIFF? NO
[2018-03-08 07:43] LABS: BASOPHILS % 0.3 % (0.0-2.0); EOSINOPHILS # 0.4 10^3/ul (0.0-0.5); EOSINOPHILS % 3.4 % (0.0-7.0); HEMATOCRIT 26.7 % (42.0-52.0); HEMOGLOBIN 8.4 g/dl (14.0-18.0); LYMPHOCYTES # 1.9 10^3/ul (0.8-2.9); MEAN CORPUSCULAR HEMOGLOBIN 25.9 pg (29.0-33.0); MEAN CORPUSCULAR HGB CONC 31.5 g/dl (32.0-37.0); MEAN CORPUSCULAR VOLUME 82.4 fl (82.0-101.0); MEAN PLATELET VOLUME 9.9 fl (7.4-10.4); MONOCYTES % 8.4 % (0.0-11.0); NEUTROPHIL # 8.5 10^3/ul (1.6-7.5); PLATELET COUNT 236 10^3/UL (140-415); RED BLOOD COUNT 3.24 10^6/ul (4.70-6.10); RED CELL DISTRIBUTION WIDTH 13.8 % (11.5-14.5)
[2018-03-08] MEDS: INSULIN ASPART [NOVOLOG] 3 ML PEN SC ×4 (07:55→20:37)
[2018-03-08 08:04] LABS: ANION GAP 11 (8-16); BLOOD UREA NITROGEN 27 mg/dl (7-20); CALCIUM 8.6 mg/dl (8.4-10.2); CARBON DIOXIDE 26 mmol/L (21-31); CHLORIDE 106 mmol/L (97-110); CREATININE 1.26 mg/dl (0.61-1.24); GLUCOSE 113 mg/dl (70-220); POTASSIUM 4.3 mmol/L (3.5-5.1); SODIUM 139 mmol/L (135-144)
[2018-03-08 08:06] LABS: MAGNESIUM 2.3 mg/dl (1.7-2.5)
[2018-03-08 08:06] LABS: PHOSPHORUS 3.2 mg/dl (2.5-4.9)
[2018-03-08] MEDS: FINASTERIDE 5 MG TAB PO (09:02)
[2018-03-08] MEDS: ASPIRIN 325 MG TAB PO (09:03)
[2018-03-08] MEDS: FAMOTIDINE 20 MG INJ IV ×2 (09:04→20:27)
[2018-03-08] MEDS: METOPROLOL 25 MG TAB PO ×2 (09:04→20:28)
[2018-03-08] MEDS: ENOXAPARIN 40 MG/0.4 ML SYG SC (09:20)
[2018-03-08] MEDS: BISACODYL 10 MG SUPP PR (16:50)
[2018-03-08] MEDS: DOCUSATE SODIUM 100 MG CAP PO (20:27)
[2018-03-08] MEDS: LUBIPROSTONE 8 MCG CAPSULE PO (20:29)
[2018-03-08] MEDS: ATORVASTATIN 40 MG TAB PO (20:29)
[2018-03-08] MEDS: OXYCODONE/ACETAMINOPHEN (5/325) TAB PO (20:30)
[2018-03-09] MEDS: ACCU-CHEK XX (01:28)
[2018-03-09] MEDS: PANTOPRAZOLE (EC) 40 MG TAB PO (05:45)
[2018-03-09] MEDS: INSULIN ASPART [NOVOLOG] 3 ML PEN SC ×4 (07:55→21:00)
[2018-03-09] MEDS: FAMOTIDINE 20 MG INJ IV ×2 (08:11→21:37)
[2018-03-09] MEDS: FINASTERIDE 5 MG TAB PO (08:12)
[2018-03-09] MEDS: ASPIRIN 325 MG TAB PO (08:12)
[2018-03-09] MEDS: LUBIPROSTONE 8 MCG CAPSULE PO ×2 (08:12→21:37)
[2018-03-09] MEDS: METOPROLOL 25 MG TAB PO ×2 (08:12→21:38)
[2018-03-09 08:18] LABS: ADD MAN DIFF? NO
[2018-03-09] MEDS: ENOXAPARIN 40 MG/0.4 ML SYG SC (08:19)
[2018-03-09 08:22] LABS: BASOPHILS % 0.5 % (0.0-2.0); EOSINOPHILS # 0.5 10^3/ul (0.0-0.5); EOSINOPHILS % 5.9 % (0.0-7.0); HEMATOCRIT 26.4 % (42.0-52.0); HEMOGLOBIN 8.5 g/dl (14.0-18.0); LYMPHOCYTES # 1.5 10^3/ul (0.8-2.9); LYMPHOCYTES % 17.7 % (15.0-51.0); MEAN CORPUSCULAR HEMOGLOBIN 26.2 pg (29.0-33.0); MEAN CORPUSCULAR HGB CONC 32.2 g/dl (32.0-37.0); MEAN CORPUSCULAR VOLUME 81.5 fl (82.0-101.0); MEAN PLATELET VOLUME 9.4 fl (7.4-10.4); MONOCYTE # 0.8 10^3/ul (0.3-0.9); MONOCYTES % 10.2 % (0.0-11.0); NEUTROPHIL # 5.3 10^3/ul (1.6-7.5); NEUTROPHILS % 63.8 % (39.0-77.0); PLATELET COUNT 263 10^3/UL (140-415); RED BLOOD COUNT 3.24 10^6/ul (4.70-6.10); RED CELL DISTRIBUTION WIDTH 13.9 % (11.5-14.5)
[2018-03-09 08:22] LABS: WHITE BLOOD COUNT 8.3 10^3/ul (4.8-10.8)
[2018-03-09 08:43] LABS: ANION GAP 12 (8-16); BLOOD UREA NITROGEN 20 mg/dl (7-20); CALCIUM 8.6 mg/dl (8.4-10.2); CARBON DIOXIDE 26 mmol/L (21-31); CHLORIDE 106 mmol/L (97-110); CREATININE 1.21 mg/dl (0.61-1.24); GLUCOSE 108 mg/dl (70-220); POTASSIUM 4.5 mmol/L (3.5-5.1); SODIUM 139 mmol/L (135-144)
[2018-03-09] MEDS: OXYCODONE/ACETAMINOPHEN (5/325) TAB PO (14:52)
[2018-03-09] MEDS: ATORVASTATIN 40 MG TAB PO (21:38)
[2018-03-10] MEDS: ACCU-CHEK XX (02:00)
[2018-03-10] MEDS: OXYCODONE/ACETAMINOPHEN (5/325) TAB PO (04:54)
[2018-03-10] MEDS: PANTOPRAZOLE (EC) 40 MG TAB PO (06:52)
[2018-03-10] MEDS: INSULIN ASPART [NOVOLOG] 3 ML PEN SC (07:51)
[2018-03-10] MEDS: FAMOTIDINE 20 MG INJ IV (08:25)
[2018-03-10] MEDS: FINASTERIDE 5 MG TAB PO (08:28)
[2018-03-10] MEDS: LUBIPROSTONE 8 MCG CAPSULE PO (08:28)
[2018-03-10] MEDS: METOPROLOL 25 MG TAB PO (08:29)
[2018-03-10] MEDS: ASPIRIN 325 MG TAB PO (08:37)
[2018-03-10] MEDS: ENOXAPARIN 40 MG/0.4 ML SYG SC (08:37)
[2018-03-17 14:04] LABS: PSA, FREE 0.5 ng/mL
== END 2018-03-10 10:50 | disposition home or self-care (01) | DRG 234 ==
LOC: SDS 07:38 → TEL 03-04 07:09 → SDS 07:38 → ICU 03-04 12:00 → SDS 09:58 → REC 09:58 → TEL 12:37
PROC: 0213093 Bypass Coronary Artery, Four or More Arteries from Coronary Artery with Autologous Venous Tissue, Open Approach (ICD-10-PCS; principal; 2018-03-01 08:46)
PROC: 4A023N7 Measurement of Cardiac Sampling and Pressure, Left Heart, Percutaneous Approach (ICD-10-PCS; 2018-03-01 08:46)
PROC: 02100Z8 Bypass Coronary Artery, One Artery from Right Internal Mammary, Open Approach (ICD-10-PCS; 2018-03-01 08:46)
PROC: 06BP4ZZ Excision of Right Saphenous Vein, Percutaneous Endoscopic Approach (ICD-10-PCS; 2018-03-01 08:46)
PROC: B211YZZ Fluoroscopy of Multiple Coronary Arteries using Other Contrast (ICD-10-PCS; 2018-03-01 08:46)
PROC: 5A1223Z Performance of Cardiac Pacing, Continuous (ICD-10-PCS; 2018-03-01 08:46)
PROC: 30233R1 Transfusion of Nonautologous Platelets into Peripheral Vein, Percutaneous Approach (ICD-10-PCS; 2018-03-01 08:46)
DX: I25.110 Atherosclerotic heart disease of native coronary artery with unstable angina pectoris (principal); N17.9 Acute kidney failure, unspecified; N13.30 Unspecified hydronephrosis; E78.5 Hyperlipidemia, unspecified; D64.9 Anemia, unspecified; I12.9 Hypertensive chronic kidney disease with stage 1 through stage 4 chronic kidney disease, or unspecified chronic kidney disease; N18.9 Chronic kidney disease, unspecified; E66.3 Overweight; I48.0 Paroxysmal atrial fibrillation; Z95.5 Presence of coronary angioplasty implant and graft; Z68.39 Body mass index [BMI] 39.0-39.9, adult; Z90.5 Acquired absence of kidney
CPT/HCPCS: 36430; 36592; 36600; 71045; 74176; 76775; 76856; 80048; 80053; 80061; 81003; 82803; 82962; 83036; 83735; 84100; 84153; 84154; 85014; 85025; 85610; 85730; 86644; 86850; 86900; 86901; 86920; 93005; 93306; 93458; 93880; 94002; 94770; 97110; 97116; 97163; 97530

== ENCOUNTER 2018-10-20 13:06 | Emergency (ER) | payer BC ==
[2018-10-20] MEDS: KETOROLAC 15 MG INJ IM (17:11)
== END 2018-10-20 18:42 | disposition home or self-care (01) ==
LOC: FTE 13:06
DX: S39.012A Strain of muscle, fascia and tendon of lower back, initial encounter (principal); I10 Essential (primary) hypertension; I25.10 Atherosclerotic heart disease of native coronary artery without angina pectoris; I25.2 Old myocardial infarction; X50.0XXA Overexertion from strenuous movement or load, initial encounter; Y92.9 Unspecified place or not applicable; Z79.01 Long term (current) use of anticoagulants; Z79.82 Long term (current) use of aspirin; Z98.61 Coronary angioplasty status
CPT/HCPCS: 96372; 99284-25